=== PATIENT | female | born 2000 | race Caucasian/White ===

== ENCOUNTER → 2020-04-08 | Outpatient (CLI) | payer BC ==
[~2020-04-08] MED LIST: NEURONTIN300 MG/CAP PO; PREDNISONE20 MG PO; PROMETHAZINE12.5 M5 PO; ZOFRAN 4MG T4 MG/TAB PO
== END ==
LOC: ZCOL.LAB 15:30
DX: Z20.828 Contact with and (suspected) exposure to other viral communicable diseases (principal)